=== PATIENT | female | born 1975 | race Caucasian/White ===

== ENCOUNTER 2017-12-16 08:04 | Observation (INO) | payer BC ==
[2017-12-16] VITALS (8 sets, daily range): BP systolic 95–126; BP diastolic 54–73; PULSE 64–89; RESP 15–20; TEMP 97.5–98.1; O2SAT 95–99
[~2017-12-16] VITALS: Ht 165.1 cm; Wt 70.0 kg
[~2017-12-16 08:04] MED LIST: Z.0.NO CURRENT MEDS
[2017-12-16] MEDS ORDERED: diphenhydrAMINE HCL 50 MG/ML VIAL IV PUSH ONE (08:30)
[2017-12-16] MEDS ORDERED: methylPREDNISolone SOD SUCC 125 MG/2 ML VIAL IV PUSH ONE (08:30)
[2017-12-16] MEDS ORDERED: SODIUM CHLORIDE 0.9% FLUSH 10 ML FLUSH IVF PRN (08:30)
[2017-12-16] MEDS ORDERED: FAMOTIDINE 20 MG TAB PO ONE (08:30)
[2017-12-16] MEDS ORDERED: CITA40TA4 PO (08:49)
--- NOTE | 2017-12-16 09:00 | RADRPT ---
EXAM DATE/TIME: 12/16/2017 08:33 [place] COMPARISON: No previous studies available for comparison. INDICATIONS : Rash x3 days with fever. MEDICAL HISTORY : None. SURGICAL HISTORY : None. ENCOUNTER: Initial ACUITY: 3 days PAIN SCORE: 1/10 LOCATION: Bilateral chest FINDINGS: A single view of the chest demonstrates the lungs to be symmetrically aerated without evidence of mas s, infiltrate or effusion. The cardiomediastinal contours are unremarkable. Osseous structures are intact. CONCLUSION: No acute disease. Sheldon Zuniga Jr., MD on December 16, 2017 at 8:57 Board Certified Radiologist. This report was verified electronically.
[2017-12-16 09:08] LABS: AUTOMATED NEUTROPHIL # 6.6 TH/MM3 (1.8-7.7); BASOPHIL % 0.3 % (0.0-2.0); EOSINOPHIL # 0.1 TH/MM3 (0-0.4); EOSINOPHIL % 0.6 % (0.0-4.0); HEMATOCRIT 40.5 % (35.0-46.0); LYMPH % 16.8 % (9.0-44.0); LYMPHOCYTE # 1.4 TH/MM3 (1.0-4.8); MEAN CELL VOLUME 98.9 FL (80.0-100.0); MEAN CORPUSCULAR HEMOGLOBIN 34.1 PG (27.0-34.0); MEAN CORPUSCULAR HGB CONC 34.5 % (32.0-36.0); MEAN PLATELET VOLUME 6.8 FL (7.0-11.0); MONO % 4.3 % (0.0-8.0); MONOCYTE # 0.4 TH/MM3 (0-0.9); PLATELET COUNT 255 TH/MM3 (150-450); RED CELL DISTRIBUTION WIDTH 13.5 % (11.6-17.2); WHITE BLOOD COUNT 8.5 TH/MM3 (4.0-11.0)
[2017-12-16 09:18] LABS: PROTHROMBIN TIME - PATIENT 10.1 SEC (9.8-11.6)
[2017-12-16 09:26] LABS: ALBUMIN 3.5 GM/DL (3.4-5.0); ALT (GPT) 14 U/L (10-53); AST (GOT) 14 U/L (15-37); BICARBONATE 27.2 MEQ/L (21.0-32.0); BLOOD UREA NITROGEN 15 MG/DL (7-18); CALCIUM 9.1 MG/DL (8.5-10.1); CHLORIDE 104 MEQ/L (98-107); CREATININE 0.95 MG/DL (0.50-1.00); GLOMERULAR FILTRATION RATE 64 ML/MIN (>89); GLUCOSE,RANDOM 88 MG/DL (74-106); SODIUM (NA) 137 MEQ/L (136-145)
[2017-12-16 09:31] LABS: ALKALINE PHOSPHATASE 56 U/L (45-117); TOTAL BILIRUBIN ADULT 0.5 MG/DL (0.2-1.0); TOTAL PROTEIN 6.4 GM/DL (6.4-8.2); TROPONIN I 0.02 NG/ML (0.02-0.05)
[2017-12-16] MEDS ORDERED: hydrOXYzine HCL 25 MG TAB PO ONE (11:15)
[2017-12-16] MEDS ORDERED: ASPIRIN 81 MG CHEW TAB CHEW ONE (11:15)
--- NOTE | 2017-12-16 11:19 | PD ---
HPI Chief Complaint: Cardiac Complaint Time Seen by Provider: 08:18 Travel History International Travel<30 days: No Contact w/Intl Traveler<30days: No Traveled to known affect area: No History of Present Illness HPI Patient is a 42-year-old female who comes in complaining of chest pain as well as a skin rash. She says she has had hives for the past few days. She went to [facility] and was prescribed steroids and Bactrim. She has been taking this, but that she did not take it today. She says that it does not seem to be improving. She said last night she developed substernal chest pain. She says she has never had this pain before. She describes it as a tightness in her chest. She denies nausea vomiting or shortness of breath. She is a heavy smoker. Nothing seems to be making her symptoms better. PFSH Past Medical History Depression: Yes Immunizations Current: Yes Tetanus Vaccination: Unknown Influenza Vaccination: No ?: Not LMP: 10/27/2017 Tubal Ligation: Yes Past Surgical History Gynecologic Surgery: Yes (tubal ligation ) Social History Alcohol Use: No Tobacco Use: Yes (1 PPD) Substance Use: Yes (SMOKE MARIJUANA ) Allergies-Medications (Allergen,Severity, Reaction): Coded Allergies: No Known Allergies (Verified Adverse Reaction, Unknown, 12/16/17) Reported Meds & Prescriptions Reported Meds & Active Scripts Active Reported Citalopram (Citalopram Hydrobromide) 40 Mg Tab 40 Mg PO DAILY Review of Systems Except as stated in HPI: all other systems reviewed are Neg General / Constitutional: No: Fever, Chills HENT: No: Headaches, Lightheadedness Cardiovascular: Positive: Chest Pain or Discomfort Respiratory: No: Cough, Shortness of Breath Gastrointestinal: No: Nausea, Vomiting Musculoskeletal: No: Myalgias, Edema Skin: Positive Rash, Positive Itching Neurologic: No: Weakness, Dizziness Physical Exam Narrative GENERAL: Awake and alert, in no acute distress. SKIN: Focused skin assessment warm/dry. Urticaria to the thighs as well as both arms. HEAD: Atraumatic. Normocephalic. EYES: Pupils equal and round. No scleral icterus. ENT: No swelling of the tongue or pharynx. Mucous membranes pink and moist. NECK: Trachea midline. No JVD. CARDIOVASCULAR: Regular rate and rhythm. No murmur appreciated. RESPIRATORY: No accessory muscle use. Clear to auscultation. Breath sounds equal bilaterally. GASTROINTESTINAL: Abdomen soft, non-tender, nondistended. MUSCULOSKELETAL: No obvious deformities. No clubbing. No cyanosis. No edema. NEUROLOGICAL: Awake and alert. No obvious cranial nerve deficits. Motor grossly within normal limits. Normal speech. PSYCHIATRIC: Appropriate mood and affect; insight and judgment normal. Data Data Last Documented VS Vital Signs Date Time Temp Pulse Resp B/P (MAP) Pulse Ox O2 Delivery O2 Flow Rate FiO2 12/16/17 09:38 83 19 102/55 (71) 99 Nasal Cannula 2.00 Orders Orders Electrocardiogram (12/16/17 08:25) Complete Blood Count With Diff (12/16/17 08:25) Comprehensive Metabolic Panel (12/16/17 08:25) Prothrombin Time / Inr (Pt) (12/16/17 08:25) Act Partial Throm Time (Ptt) (12/16/17 08:25) Troponin I (12/16/17 08:25) Chest, Single Ap (12/16/17 08:25) Ecg Monitoring (12/16/17 08:25) Bilateral Bp Monitoring (12/16/17 08:25) Iv Access Insert/Monitor (12/16/17 08:25) Oximetry (12/16/17 08:25) Oxygen Administration (12/16/17 08:25) Sodium Chloride 0.9% Flush (Ns Flush) (12/16/17 08:30) Diphenhydramine Inj (Benadryl Inj) (12/16/17 08:30) Methylprednisolone So Succ Inj (Solumedr (12/16/17 08:30) Famotidine (Pepcid) (12/16/17 08:30) Hydroxyzine Hcl (Atarax) (12/16/17 11:15) Aspirin Chew (Aspirin Chew) (12/16/17 11:15) Admit Order (Ed Use Only) (12/16/17 ) Labs Laboratory Tests Test 12/16/17 08:55 White Blood Count 8.5 TH/MM3 Red Blood Count 4.10 MIL/MM3 Hemoglobin 14.0 GM/DL Hematocrit 40.5 % Mean Corpuscular Volume 98.9 FL Mean Corpuscular Hemoglobin 34.1 PG Mean Corpuscular Hemoglobin Concent 34.5 % Red Cell Distribution Width 13.5 % Platelet Count 255 TH/MM3 Mean Platelet Volume 6.8 FL Neutrophils (%) (Auto) 78.0 % Lymphocytes (%) (Auto) 16.8 % Monocytes (%) (Auto) 4.3 % Eosinophils (%) (Auto) 0.6 % Basophils (%) (Auto) 0.3 % Neutrophils # (Auto) 6.6 TH/MM3 Lymphocytes # (Auto) 1.4 TH/MM3 Monocytes # (Auto) 0.4 TH/MM3 Eosinophils # (Auto) 0.1 TH/MM3 Basophils # (Auto) 0.0 TH/MM3 CBC Comment DIFF FINAL Differential Comment Prothrombin Time 10.1 SEC Prothromb Time International Ratio 1.0 RATIO Activated Partial Thromboplast Time 22.8 SEC Blood Urea Nitrogen 15 MG/DL Creatinine 0.95 MG/DL Random Glucose 88 MG/DL Total Protein 6.4 GM/DL Albumin 3.5 GM/DL Calcium Level 9.1 MG/DL Alkaline Phosphatase 56 U/L Aspartate Amino Transf (AST/SGOT) 14 U/L Alanine Aminotransferase (ALT/SGPT) 14 U/L Total Bilirubin 0.5 MG/DL Sodium Level 137 MEQ/L Potassium Level 4.2 MEQ/L Chloride Level 104 MEQ/L Carbon Dioxide Level 27.2 MEQ/L Anion Gap 6 MEQ/L Estimat Glomerular Filtration Rate 64 ML/MIN Troponin I 0.02 NG/ML MDM Medical Decision Making Medical Screen Exam Complete: Yes Emergency Medical Condition: Yes Medical Record Reviewed: Yes Interpretation(s) ECG shows normal sinus rhythm at 87, no ST elevation or depression Differential Diagnosis ACS versus an STEMI versus STEMI versus allergic reaction Narrative Course Patient is a 42-year-old female comes in complaining of hives as well as chest pain. Exam shows urticaria on her extremities. There is no airway compromise. She was given steroids, famotidine, Benadryl. There does seem to be some improvement of the urticaria. She is advised to change to Dove soap and a hypoallergenic detergent. Her chest pain is concerning, as it is substernal and started last night. ECG shows no signs of ischemia. Troponin is negative. Patient given an aspirin will be placed in the chest pain center for management of this issue. Diagnosis Primary Impression: Chest pain Qualified Codes: R07.9 - Chest pain, unspecified Additional Impression: Urticaria Admitting Information Admitting Physician Requests: Observation Caitlin Joel MD Dec 16, 2017 11:19
[2017-12-16] MEDS ORDERED: ONDANSETRON HCL 4 MG/2 ML VIAL IV PUSH PRN (12:15)
[2017-12-16] MEDS ORDERED: NITROGLYCERIN 0.4 MG SL 25 TABS/BTL SL PRN (12:15)
--- NOTE | 2017-12-16 12:17 | HHI.HP ---
HPI Primary Care Physician No Primary Care Physician Chief Complaint Chest pain History of Present Illness 42-year-old female with no significant past medical history and a current smoker presents emergency room for further evaluation of chest pain any skin rash. Onset chest pain for a.m. Pain woke her from sleep. Location substernal with radiation left inframammary area. Characterized as sharp pain. Duration 20 minutes of severe pain, followed by continuos mild discomfort. No associated symptoms of nausea, vomiting, or diaphoresis. Endorses slight dyspnea during severe pain. No known precipitating or relieving factors. Continues to have tenderness of substernal area, made worse with palpation. No particular movement or position makes pain better or worse. In regards to skin rash, onset 3 days ago. Location generalized bilateral legs, bilateral arms, back, and trunk areas. Characterized as burning, itching, sore to the touch, raised areas. Seen and evaluated by [facility] 3 days when rash first occurred. Given Bactrim, Prednisone, and Benadryl without any relief. Rash not getting worse, as some areas have resolved, but developing new areas on neck, upper back, and left side of face/left orbital area. No triggers identified, no new soaps, or medications. Denies similar symptoms in the past. Review of Systems General: No fatigue,weakness, fever, chills, recent illness, or change in appetite. As stated above, otherwise as been in her general state of health. HEENT: No HALE, no vision changes, no nasal congestion or drainage, no dysphasia CV: Continues to have "mild" chest pain as stated above. No palpitations or dizziness. RESP: No SOB, cough, wheeze, or recent URI. Current smoker. GI: No nausea, vomiting, bowel changes, diarrhea, constipation, pain, distention , melena, or blood in the stool. : No dysuria, urgency, frequency, recent UTIs, or prone to frequent UTIs. EXT: No lower leg edema, no paraesthesias MS: No discomfort, change in ROM, or recent injury. NEURO: No change in memory, difficulty with balance, LOC, motor/sensory deficits PSYCH: No anxiety. History of depression well controlled with current medication regimen. No recent or increased situational stress. SKIN: x3 days raised, pruritic, painful, reddened rash bilateral legs, bilateral arms, back, and truck. Reports areas move location. Rash resulted in left hand edema x1 day which as since resolved. Rash moved to left orbital area causing edema without pain in eye. Past Family Social History Allergies: Coded Allergies: No Known Allergies (Verified Allergy, Unknown, 12/16/17) Past Medical History Depression Past Surgical History Tubal ligation Reported Medications Reported Meds & Active Scripts Active Reported Citalopram (Citalopram Hydrobromide) 40 Mg Tab 40 Mg PO DAILY Active Ordered Medications Current Medications Medications (Trade) Dose Ordered Sig/Teresa Route Start Time Stop Time Status Last Admin (NS Flush) 2 ml UNSCH PRN IVF 12/16/17 08:30 12/16/17 09:09 (NS Flush) 2 ml BID IV FLUSH 12/16/17 21:00 UNV (Tylenol) 500 mg Q4H PRN PO 12/16/17 12:15 UNV (Zofran Inj) 4 mg Q6H PRN IV PUSH 12/16/17 12:15 UNV (Nitrostat Sl) 0.4 mg Q5M PRN SL 12/16/17 12:15 UNV (Aspirin) 325 mg DAILY PO 12/17/17 09:00 UNV Family History Noncontributory for early onset cardiovascular disease. Social History No known hypertension, hyperlipidemia, or diabetes. Current smoker 3/4 pack daily. No alcohol or illegal drug use. . 5 children ages 27, 24,21,18, and 5. Past cardiac testing None Physical Exam Vital Signs Vital Signs Date Time Temp Pulse Resp B/P (MAP) Pulse Ox O2 Delivery O2 Flow Rate FiO2 12/16/17 09:38 83 19 102/55 (71) 99 Nasal Cannula 2.00 12/16/17 08:51 96 Nasal Cannula 2.00 12/16/17 08:49 99 Room Air 12/16/17 08:45 86 15 99 Room Air 12/16/17 08:17 89 18 112/73 (86) 96 Room Air Physical Exam GENERAL: Alert WN, WD, NAD, pleasant, female HEAD: NC, AT EYES: Sclera clear, conjunctiva without injection, pupils equal and round ENT: Mucous membranes pink and moist, no nasal discharge or bleeding NECK: Supple, no masses, trachea midline CV: RRR, without murmur, rub, gallop, no JVD, S1-S2 no S3-S4. Chest wall pain reproduced with palpation. RESP: Clear lungs throughout bilateral, no crackles, wheeze, rhonchi, symmetrical chest rise, nonlabored, able to speak in full sentences ABD: Soft, NT, ND, no masses, positive bowel tones EXT: Pulses +24, no dependent edema, varicosities lower extremities MS: Normal tone 4 extremities, nontender, no obvious deformities, full range of motion NEURO: CN II through CN XII grossly intact, motor strength 5/5, gait WNL PSYCH: A+O 3, pleasant affect, appropriate speech, mood, insight and judgment SKIN: Diffuse raised, warm, blanchable, well circumscribed erythema and edema bilateral thighs, arms, posterior neck, left optical area, and trunk. Normal turgor,multiple tattoos Laboratory Laboratory Tests Test 12/16/17 08:55 White Blood Count 8.5 Red Blood Count 4.10 Hemoglobin 14.0 Hematocrit 40.5 Mean Corpuscular Volume 98.9 Mean Corpuscular Hemoglobin 34.1 Mean Corpuscular Hemoglobin Concent 34.5 Red Cell Distribution Width 13.5 Platelet Count 255 Mean Platelet Volume 6.8 Neutrophils (%) (Auto) 78.0 Lymphocytes (%) (Auto) 16.8 Monocytes (%) (Auto) 4.3 Eosinophils (%) (Auto) 0.6 Basophils (%) (Auto) 0.3 Neutrophils # (Auto) 6.6 Lymphocytes # (Auto) 1.4 Monocytes # (Auto) 0.4 Eosinophils # (Auto) 0.1 Basophils # (Auto) 0.0 CBC Comment DIFF FINAL Differential Comment Prothrombin Time 10.1 Prothromb Time International Ratio 1.0 Activated Partial Thromboplast Time 22.8 Blood Urea Nitrogen 15 Creatinine 0.95 Random Glucose 88 Total Protein 6.4 Albumin 3.5 Calcium Level 9.1 Alkaline Phosphatase 56 Aspartate Amino Transf (AST/SGOT) 14 Alanine Aminotransferase (ALT/SGPT) 14 Total Bilirubin 0.5 Sodium Level 137 Potassium Level 4.2 Chloride Level 104 Carbon Dioxide Level 27.2 Anion Gap 6 Estimat Glomerular Filtration Rate 64 Troponin I 0.02 Result Diagram: 12/16/1755 12/16/1755 Imaging Last 48 hours Impressions Chest X-Ray 12/16/17 0832 Signed Impressions: Service Date/Time: Saturday, December 16, 2017 08:33 - CONCLUSION: No acute disease. Sheldon Zuniga Jr., MD Course EKG NSR, normal axis, no st t segment changes Caprini VTE Risk Assessment Caprini VTE Risk Assessment: No/Low Risk (score <= 1) Caprini Risk Assessment Model Point Value = 1 Point Value = 2 Point Value = 3 Point Value = 5 Age 41-60 Minor surgery BMI > 25 kg/m2 Swollen legs Varicose veins or History of unexplained or recurrent spontaneous Oral contraceptives or hormone replacement Sepsis (< 1 month) Serious lung disease, including pneumonia (< 1 month) Abnormal pulmonary function Acute myocardial infarction Congestive heart failure (< 1 month) History of inflammatory bowel disease Medical patient at bed rest Age 61-74 Arthroscopic surgery Major open surgery (> 45 min) Laparoscopic surgery (> 45 min) Malignancy Confined to bed (> 72 hours) Immobilizing plaster cast Central venous access Age >= 75 History of VTE Family history of VTE Factor V Leiden Prothrombin [id number] Lupus anticoagulant Anticardiolipin antibodies Elevated serum homocysteine Heparin-induced thrombocytopenia Other congenital or acquired thrombophilia Stroke (< 1 month) Elective arthroplasty Hip, pelvis, or leg fracture Acute spinal cord injury (< 1 month) Prophylaxis Regimen Total Risk Factor Score Risk Level Prophylaxis Regimen 0-1 Low Early ambulation 2 Moderate Order ONE of the following: *Sequential Compression Device (SCD) *Heparin 5000 units SQ BID 3-4 Higher Order ONE of the following medications: *Heparin 5000 units SQ TID *Enoxaparin/Lovenox 40 mg SQ daily (WT < 150 kg, CrCl > 30 mL/min) *Enoxaparin/Lovenox 30 mg SQ daily (WT < 150 kg, CrCl > 10-29 mL/min) *Enoxaparin/Lovenox 30 mg SQ BID (WT < 150 kg, CrCl > 30 mL/min) AND/OR *Sequential Compression Device (SCD) 5 or more Highest Order ONE of the following medications: *Heparin 5000 units SQ TID (Preferred with Epidurals) *Enoxaparin/Lovenox 40 mg SQ daily (WT < 150 kg, CrCl > 30 mL/min) *Enoxaparin/Lovenox 30 mg SQ daily (WT < 150 kg, CrCl > 10-29 mL/min) *Enoxaparin/Lovenox 30 mg SQ BID (WT < 150 kg, CrCl > 30 mL/min) AND *Sequential Compression Device (SCD) Assessment and Plan Assessment and Plan #1 Chest pain-admitted to chest pain center. Begin cardiac protocol including 3 sets EKG, cardiac enzymes, and monitor on telemetry. Will be seen and evaluated by Dr. Larry Ross. Reassurance provided chest discomfort atypical for cardiac pain and suspect costochondritis verses gastritis due to recent oral steroid use. Further disposition to follow after evaluation by consulting application engineer. #2 Tobacco use-strongly encourage and stressed the importance of tobacco cessation. Instructed to quit smoking. #3 Possible gastritis-GI cocktail, consider adding PPI. #4 Urticaria-Hydroxyzines, diphenhydramine, and Solu-Medrol given in ER. [address] Larry Ross. Rash possibility vasculitis, not urticaria as originally suspected. Obtain DENVER, sed rate, and urinalysis and consult hospitalist for further evaluation. No further cardiac testing warranted at present. 1420 Spoke with patient RN regarding plan of care and consult to hospitalist. Viktoria Hinton Dec 16, 2017 12:17
[2017-12-16] MEDS ORDERED: ALUMINUM/MAGNESIUM/SIMETH 30 ML CUP PO ONE (12:45)
[2017-12-16] MEDS ORDERED: LIDOCAINE VISCOUS 2% SOLN 15 ML UDC SWISH-SWAL ONE (12:45)
[2017-12-16 12:46] LABS: TROPONIN I LESS THAN 0.02 NG/ML (0.02-0.05)
[2017-12-16 16:25] LABS: TROPONIN I LESS THAN 0.02 NG/ML (0.02-0.05)
[2017-12-16] MEDS: ACETAMINOPHEN 500 MG CPLT PO PRN (19:57)
[2017-12-16] MEDS: hydrOXYzine HCL 25 MG TAB PO PRN (19:57)
[2017-12-16 20:23] LABS: AMORPHOUS SEDIMENT, URINE RARE; BACTERIA, URINE RARE /hpf; BILIRUBIN, URINE NEG (NEG); BLOOD, URINE NEG (NEG); GLUCOSE,URINE NEG (NEG); KETONE, URINE NEG (NEG); MUCUS URINE FEW /lpf (OCC); NITRITE,URINE NEG (NEG); PH, URINE 7.5 (5.0-8.5); URINE COLOR YELLOW (YELLW/STRAW); URINE LEUKOCYTE ESTERASE NEG (NEG)
[2017-12-16] MEDS: SODIUM CHLORIDE 0.9% FLUSH 10 ML FLUSH IV FLUSH SCH (21:00)
[2017-12-17] MEDS: hydrOXYzine HCL 25 MG TAB PO PRN ×2 (03:29→10:12)
[2017-12-17] MEDS: ACETAMINOPHEN 500 MG CPLT PO PRN (03:30)
[2017-12-17 04:03] VITALS: BP 108/63; PULSE 68; RESP 18; TEMP 98.7; O2SAT 97
--- NOTE | 2017-12-17 07:21 | EKG ---
Date Performed: 12/16/2017 Time Performed: 08:30:07 PTAGE: 42 years EKG: Sinus rhythm WITH SHORT HI INTERVAL POSSIBLE RIGHT VENTRICULAR CONDUCTION DELAY BORDERLINE ECG NO PREVIOUS TRACING DOCTOR: Sarah Napoles Interpretating Date/Time 12/17/2017 07:20:18
--- NOTE | 2017-12-17 07:21 | EKG ---
Date Performed: 12/16/2017 Time Performed: 12:11:59 PTAGE: 42 years EKG: Sinus rhythm POSSIBLE RIGHT VENTRICULAR CONDUCTION DELAY BORDERLINE ECG Since PREVIOUS TRACING , no significant change noted PREVIOUS TRACIN12/16/2017 08.30 DOCTOR: Sarah Napoles Interpretating Date/Time 12/17/2017 07:20:30
[2017-12-17 08:00] VITALS: BP 109/67; PULSE 62; RESP 20; TEMP 96.8; O2SAT 96
[2017-12-17] MEDS ORDERED: LIDOCAINE VISCOUS 2% SOLN 15 ML UDC SWISH-SWAL PRN (09:00)
[2017-12-17] MEDS ORDERED: ALUMINUM/MAGNESIUM/SIMETH 30 ML CUP PO PRN (09:00)
[2017-12-17] MEDS ORDERED: ASPIRIN 81 MG CHEW TAB PO SCH (09:00)
[2017-12-17] MEDS ORDERED: ASPIRIN 325 MG TAB PO SCH (09:00)
[2017-12-17 10:00] VITALS: PULSE 59
[2017-12-17] MEDS: SODIUM CHLORIDE 0.9% FLUSH 10 ML FLUSH IV FLUSH SCH (10:12)
[2017-12-17 12:00] VITALS: BP 101/57; PULSE 73; RESP 20; TEMP 95.6; O2SAT 97
[2017-12-17] MEDS ORDERED: PRED20 PO (12:27)
[2017-12-17] MEDS ORDERED: PROT40TA PO (12:27)
[2017-12-17] MEDS ORDERED: HYDR-3133 PO (12:27)
--- NOTE | 2017-12-17 12:28 | HHI.PR ---
Subjective Remarks Follow up for chest pain, urticaria. Patient is currently doing well. However, she reports resolution of some urticaria and onset of some new urticaria. Facial urticaria is resolved. She reports resolution of chest discomfort with GI cocktail. No fever, chills. Objective Vitals Vital Signs Date Time Temp Pulse Resp B/P (MAP) Pulse Ox O2 Delivery O2 Flow Rate FiO2 12/17/17 08:00 96.8 62 20 109/67 (81) 96 12/17/17 04:14 18 12/17/17 04:03 98.7 68 18 108/63 (78) 97 12/17/17 03:33 18 12/16/17 23:10 98.0 66 18 126/68 (87) 95 12/16/17 20:56 21 12/16/17 20:39 98.1 64 18 110/57 (74) 96 12/16/17 16:00 97.5 66 20 95/54 (68) 96 12/16/17 15:55 69 12/16/17 12:51 12/16/17 12:30 76 19 102/63 (76) 96 Room Air I/O 12/16/17 12/16/17 12/16/17 12/17/17 12/17/17 12/17/17 07:00 15:00 23:00 07:00 15:00 23:00 Intake Total 250 ml 200 ml Balance 250 ml 200 ml Intake Oral 250 ml 200 ml Result Diagram: 12/16/17 0855 12/16/17 0855 Imaging Last Impressions Chest X-Ray 12/16/17 0825 Signed Impressions: Service Date/Time: Saturday, December 16, 2017 08:33 - CONCLUSION: No acute disease. Sheldon Zuniga Jr., MD Objective Remarks GENERAL: Alert, Oriented x 3, NAD. SKIN: Warm and dry. Diffuse patchy urticarial lesions noted. HEAD: Normocephalic. EYES: No scleral icterus. No injection or drainage. NECK: Supple, trachea midline. No JVD or lymphadenopathy. CARDIOVASCULAR: Regular rate and rhythm without murmurs, gallops, or rubs. RESPIRATORY: Breath sounds equal bilaterally. No accessory muscle use. GASTROINTESTINAL: Abdomen soft, non-tender, nondistended. MUSCULOSKELETAL: No cyanosis, or edema. BACK: Nontender without obvious deformity. No CVA tenderness. Procedures None. A/P Problem List: (1) Urticaria of unknown origin ICD Code: L50.9 - Urticaria, unspecified (2) Chest pain ICD Code: R07.9 - Chest pain, unspecified Assessment and Plan Ms. Lomas, 42 was admitted to the hospital due to chest pain. Troponins were negative. She started having diffuse urticaria prior to this admission. She reports burning, itchy sensation. No airway compromise. Facial urticaria resolved. - Chest pain - Possibly due to prednisone use, gastritis. - Troponins X 3 negative. - Will discharge patient on Protonix. - Diffuse urticaria - Patient is hemodynamically stable. No airway compromise - Advised patient to see a Quality Control Tester as soon as possible. She called a store consultant that belongs to her insurance network. - Patient will follow up with Rheumatology for further work up. - Differential diagnosis including hypersensitivity reaction, Urticarial vasculitis, atypical presentation of SLE - Work up can be done in the outpatient setting. - ESR was 4. DENVER was ordered - pending. - Tobacco abuse - patient is advised to quit smoking. Full code. Discharge patient to home Condition on discharge: Improved Regular Diet as tolerated Ad Cecilia activity Rx written: - Hydroxyzine 25mg Q6hrs PRN - Protonix 40mg Qday - Prednisone 20mg Qday X 7 days. Follow-up with primary care physician one week. Rheumatology within 7-10 days. Willie Cassidy DO Dec 17, 2017 12:28
== END 2017-12-17 16:15 | disposition home or self-care (01) ==
LOC: NEPC 08:04 → NEDA 11:14 → NEPGCP 12:49
PROVIDERS: ADMIT Hospitalist; ATTEND Hospitalist
DX: R07.9 Chest pain, unspecified (principal); L50.9 Urticaria, unspecified; F17.210 Nicotine dependence, cigarettes, uncomplicated; F32.9 Major depressive disorder, single episode, unspecified; F12.90 Cannabis use, unspecified, uncomplicated; R06.00 Dyspnea, unspecified; R94.31 Abnormal electrocardiogram [ECG] [EKG]
CPT/HCPCS: 71045; 80053; 81001; 82550; 84484; 85025; 85610; 85652; 85730; 86038; 93005; 96374; 96375; 99285; G0378; J1200; J2930

== ENCOUNTER 2018-02-27 13:52 | Inpatient (IN) | payer BC ==
[~2018-02-27] VITALS: Ht 165.1 cm; Wt 77.7 kg
[2018-02-27] VITALS (7 sets, daily range): BP systolic 78–127; BP diastolic 46–69; PULSE 43–53; RESP 14–20; TEMP 98.3; O2SAT 97–100
[~2018-02-27 13:52] MED LIST changes: +CITA40TA4 PO; +HYDR-3133 PO; +PRED20 PO; +PROT40TA PO; -Z.0.NO CURRENT MEDS
[2018-02-27 17:25] LABS: AUTOMATED NEUTROPHIL # 4.7 TH/MM3 (1.8-7.7); BASOPHIL # 0.1 TH/MM3 (0-0.2); EOSINOPHIL # 0.2 TH/MM3 (0-0.4); EOSINOPHIL % 3.1 % (0.0-4.0); HEMATOCRIT 44.7 % (35.0-46.0); HEMOGLOBIN 15.5 GM/DL (11.6-15.3); LYMPH % 23.5 % (9.0-44.0); LYMPHOCYTE # 1.7 TH/MM3 (1.0-4.8); MEAN CELL VOLUME 98.5 FL (80.0-100.0); MEAN CORPUSCULAR HEMOGLOBIN 34.1 PG (27.0-34.0); MEAN CORPUSCULAR HGB CONC 34.6 % (32.0-36.0); MEAN PLATELET VOLUME 7.4 FL (7.0-11.0); MONO % 8.5 % (0.0-8.0); MONOCYTE # 0.6 TH/MM3 (0-0.9); NEUT % 63.9 % (16.0-70.0); PLATELET COUNT 275 TH/MM3 (150-450); RED BLOOD COUNT 4.54 MIL/MM3 (4.00-5.30); RED CELL DISTRIBUTION WIDTH 13.3 % (11.6-17.2); WHITE BLOOD COUNT 7.4 TH/MM3 (4.0-11.0)
[2018-02-27] MEDS ORDERED: SODIUM CHLOR 0.9% 1000 ML INJ 1,000 ML IV ONE ×4 (19:00→21:30)
--- NOTE | 2018-02-27 19:11 | PD ---
HPI Chief Complaint: OD/ Ingestion Time Seen by Provider: 18:43 Travel History International Travel<30 days: No Contact w/Intl Traveler<30days: No Traveled to known affect area: No History of Present Illness HPI The patient was seen and examined in the presence of the nurse. This patient has been having some severe depression and suicidal ideations. Yesterday she took an intentional overdose of clonidine at noon. She says that she took 90 tablets of 0.1 mg strength. She arrives critically ill with a blood pressure of 74 systolic and is feeling drowsy and lethargic. She denies alcohol or illicit drug use. Symptoms are severe. No alleviating factors. No exacerbating factors. Duration is according to the patient 31 hours. PFSH Past Medical History Depression: Yes Diabetes: No Psychiatric: Yes Immunizations Current: Yes Tetanus Vaccination: > 5 Years Influenza Vaccination: No ?: Not LMP: 2017 Tubal Ligation: Yes Past Surgical History Gynecologic Surgery: Yes (tubal ligation ) Other Surgery: Yes (TUBAL LIGATION) Social History Alcohol Use: No Tobacco Use: Yes (1 PPD) Substance Use: Yes (SMOKE MARIJUANA ) Allergies-Medications (Allergen,Severity, Reaction): Coded Allergies: No Known Allergies (Verified Allergy, Unknown, 02/27/18) Reported Meds & Prescriptions Reported Meds & Active Scripts Active Protonix (Pantoprazole Sodium) 40 Mg Tab 40 Mg PO DAILY Prednisone 20 Mg Tab 20 Mg PO DAILY Hydroxyzine HCl 25 Mg Tab 25 Mg PO Q6H PRN Reported Citalopram (Citalopram Hydrobromide) 40 Mg Tab 40 Mg PO DAILY Review of Systems General / Constitutional: No: Fever Eyes: No: Visual changes HENT: No: Headaches Cardiovascular: No: Chest Pain or Discomfort Respiratory: No: Shortness of Breath Gastrointestinal: No: Abdominal Pain Genitourinary: No: Dysuria Musculoskeletal: No: Pain Skin: No Rash Neurologic: Positive: Change in Mentation, No: Weakness Psychiatric: Positive: Depression, Suicidal Ideations Endocrine: No: Polydipsia Hematologic/Lymphatic: No: Easy Bruising Physical Exam Narrative GENERAL: Well-nourished, well-developed patient who is drowsy. SKIN: Focused skin assessment reveals no rash and nodules. Skin is Warm and dry. HEAD: Atraumatic. Normocephalic. EYES: Pupils equal and round. No scleral icterus. No injection or drainage. ENT: No nasal bleeding or discharge. Mucous membranes pink and moist. NECK: Trachea midline. No JVD. CARDIOVASCULAR: Regular rate and rhythm. No murmur appreciated. Bradycardic at 50 RESPIRATORY: No accessory muscle use. Clear to auscultation. Breath sounds equal bilaterally. GASTROINTESTINAL: Abdomen soft, non-tender, nondistended. Hepatic and splenic margins not palpable. MUSCULOSKELETAL: No obvious deformities. No clubbing. No cyanosis. No edema. NEUROLOGICAL: Awake but drowsy. No obvious cranial nerve deficits. Motor grossly within normal limits. Normal speech. PSYCHIATRIC: Depressed mood and flat affect; insight and judgment poor. Data Data Last Documented VS Vital Signs Date Time Temp Pulse Resp B/P (MAP) Pulse Ox O2 Delivery O2 Flow Rate FiO2 02/27/18 21:54 43 20 127/61 (83) 99 Nasal Cannula 2.00 02/27/18 14:39 98.3 Orders Orders Electrocardiogram (02/27/18 14:40) Complete Blood Count With Diff (02/27/18 14:40) Comprehensive Metabolic Panel (02/27/18 14:40) Urinalysis - C+S If Indicated (02/27/18 14:40) Ed Urine Pregnancytest Poc (02/27/18 14:40) Psych Screen (02/27/18 14:40) Drug Screen, Random Urine (02/27/18 14:40) Alcohol (Ethanol) (02/27/18 14:40) Salicylates (Aspirin) (02/27/18 14:40) Tylenol (Acetaminophen) (02/27/18 14:40) Queen Producer / Telemetry LUDMILA.Q8H (02/27/18 18:53) Sodium Chlor 0.9% 1000 Ml Inj (Ns 1000 M (02/27/18 19:00) Sodium Chlor 0.9% 1000 Ml Inj (Ns 1000 M (02/27/18 19:00) Call Poison Control (02/27/18 18:54) Sodium Chlor 0.9% 1000 Ml Inj (Ns 1000 M (02/27/18 21:30) Sodium Chlor 0.9% 1000 Ml Inj (Ns 1000 M (02/27/18 21:30) Urine Culture (02/27/18 UNK) Labs Laboratory Tests Test 02/27/18 00:00 02/27/18 16:52 Urine Color YELLOW Urine Turbidity HAZY Urine pH 5.5 Urine Specific [place] 1.015 Urine Protein 30 mg/dL Urine Glucose (UA) NEG mg/dL Urine Ketones NEG mg/dL Urine Occult Blood SMALL Urine Nitrite NEG Urine Bilirubin NEG Urine Urobilinogen LESS THAN 2.0 MG/DL Urine Leukocyte Esterase TRACE Urine RBC 3 /hpf Urine WBC 14 /hpf Urine Squamous Epithelial Cells 1 /hpf Urine Amorphous Sediment RARE Urine Bacteria OCC /hpf Urine Hyaline Casts 10 /lpf Urine Mucus FEW /lpf Microscopic Urinalysis Comment CULTURE INDICATED Urine Opiates Screen NEG Urine Barbiturates Screen NEG Urine Amphetamines Screen NEG Urine Benzodiazepines Screen NEG Urine Cocaine Screen NEG Urine Cannabinoids Screen POS White Blood Count 7.4 TH/MM3 Red Blood Count 4.54 MIL/MM3 Hemoglobin 15.5 GM/DL Hematocrit 44.7 % Mean Corpuscular Volume 98.5 FL Mean Corpuscular Hemoglobin 34.1 PG Mean Corpuscular Hemoglobin Concent 34.6 % Red Cell Distribution Width 13.3 % Platelet Count 275 TH/MM3 Mean Platelet Volume 7.4 FL Neutrophils (%) (Auto) 63.9 % Lymphocytes (%) (Auto) 23.5 % Monocytes (%) (Auto) 8.5 % Eosinophils (%) (Auto) 3.1 % Basophils (%) (Auto) 1.0 % Neutrophils # (Auto) 4.7 TH/MM3 Lymphocytes # (Auto) 1.7 TH/MM3 Monocytes # (Auto) 0.6 TH/MM3 Eosinophils # (Auto) 0.2 TH/MM3 Basophils # (Auto) 0.1 TH/MM3 CBC Comment DIFF FINAL Differential Comment Blood Urea Nitrogen 14 MG/DL Creatinine 1.47 MG/DL Random Glucose 97 MG/DL Total Protein 7.4 GM/DL Albumin 4.0 GM/DL Calcium Level 9.5 MG/DL Alkaline Phosphatase 67 U/L Aspartate Amino Transf (AST/SGOT) 14 U/L Alanine Aminotransferase (ALT/SGPT) 15 U/L Total Bilirubin 2.5 MG/DL Sodium Level 140 MEQ/L Potassium Level 4.8 MEQ/L Chloride Level 108 MEQ/L Carbon Dioxide Level 25.5 MEQ/L Anion Gap 7 MEQ/L Estimat Glomerular Filtration Rate 39 ML/MIN Salicylates Level LESS THAN 1.7 MG/DL Acetaminophen Level LESS THAN 2.0 MCG/ML Ethyl Alcohol Level LESS THAN 3 MG/DL [facility] Medical Decision Making Medical Screen Exam Complete: Yes Emergency Medical Condition: Yes Medical Record Reviewed: Yes Differential Diagnosis Intentional overdose, medication side effect, hypotension Narrative Course I have reviewed the patient's electronic medical record. Patient arrives critically ill profound hypotension after clonidine overdose 2 IVs placed and 2 L normal saline IV bolus given Will reassess pressure after that Blood and urine studies sent Poison control be called I reviewed her EKG which shows sinus bradycardia at 43 Extended cardiac monitoring shows sinus bradycardia in the 40s and 50s Patient was initially very hypotensive. After 2 L came up to 100 systolic I gave her 2 additional liters of IV normal saline for a total of 4 L infused and her blood pressure came up to 120s systolic Heart rate is come up to 60s Mental status is Back to normal over several hours of observation here. She's now been her total of 9 hours and has normal mental status and normal vital signs She is completed psychiatric evaluation I reviewed her lab studies which are reasonably normal This point the patient is no longer critically ill She is medically cleared for psychiatric admission. Critical Care Narrative Aggregate critical care time was 80 minutes. Time to perform other separately billable procedures was not included in the critical care time. My time did not include minutes spent treating any other patients simultaneously or on activities that did not directly contribute to the patient's treatment. The services I provided to this patient were to treat and/or prevent clinically significant deterioration that could result in: Cardiac arrhythmia, cardiopulmonary arrest, shock I provided critical care services requiring my management, as noted below: Chart data review, documentation time, medication orders and management, vital sign assessments/reviewing monitor data, ordering and reviewing lab tests, ordering and interpreting/reviewing x-rays and diagnostic studies, care of the patient and discussion of the patient with the admitting physicians. Diagnosis Primary Impression: Depression with suicidal ideation Additional Impression: Clonidine overdose Qualified Codes: T46.5X2A - Poisoning by other antihypertensive drugs, intentional self-harm, initial encounter Antoni Tavera MD Feb 27, 2018 19:11
[2018-02-27 21:52] LABS: AST (GOT) 14 U/L (15-37); BICARBONATE 25.5 MEQ/L (21.0-32.0); BLOOD UREA NITROGEN 14 MG/DL (7-18); CALCIUM 9.5 MG/DL (8.5-10.1); CHLORIDE 108 MEQ/L (98-107); CREATININE 1.47 MG/DL (0.50-1.00); GLOMERULAR FILTRATION RATE 39 ML/MIN (>89); GLUCOSE,RANDOM 97 MG/DL (74-106); SODIUM (NA) 140 MEQ/L (136-145)
[2018-02-27 21:55] LABS: ALKALINE PHOSPHATASE 67 U/L (45-117); ALT (GPT) 15 U/L (10-53); TOTAL BILIRUBIN ADULT 2.5 MG/DL (0.2-1.0); TOTAL PROTEIN 7.4 GM/DL (6.4-8.2)
[2018-02-27 22:01] LABS: ACETAMINOPHEN LESS THAN 2.0 MCG/ML (10.0-30.0)
[2018-02-27 22:03] LABS: AMORPHOUS SEDIMENT, URINE RARE; BACTERIA, URINE OCC /hpf; BILIRUBIN, URINE NEG (NEG); BLOOD, URINE SMALL (NEG); GLUCOSE,URINE NEG (NEG); HYALINE CAST, URINE 10 /lpf (RARE); KETONE, URINE NEG (NEG); MUCUS URINE FEW /lpf (OCC); NITRITE,URINE NEG (NEG); PH, URINE 5.5 (5.0-8.5); SQUAMOUS EPITHELIAL CELL URINE 1 /hpf (0-5); URINE COLOR YELLOW (YELLW/STRAW); URINE LEUKOCYTE ESTERASE TRACE (NEG)
[2018-02-28 02:14] VITALS: BP 115/69; PULSE 44; RESP 16; O2SAT 99
[2018-02-28 06:00] VITALS: BP 120/74; PULSE 52; RESP 20; O2SAT 95
[2018-02-28 08:36] VITALS: BP 115/67; PULSE 53; RESP 22; TEMP 98.6; O2SAT 98
[2018-02-28 12:27] VITALS: BP 112/68; PULSE 52; RESP 16; TEMP 97.8; O2SAT 95
[2018-02-28 14:10] VITALS: BP 113/66; PULSE 55; RESP 18
[2018-02-28] MEDS ORDERED: LORazepam 2 MG/ML VIAL IM PRN ×2 (14:30)
[2018-02-28] MEDS ORDERED: ACETAMINOPHEN 325 MG TAB PO PRN (14:30)
[2018-02-28] MEDS ORDERED: MAGNESIUM HYDROXIDE SUSP 30 ML CUP PO PRN (14:30)
[2018-02-28] MEDS ORDERED: ALUMINUM/MAGNESIUM/SIMETH 30 ML CUP PO PRN (14:30)
[2018-02-28] MEDS ORDERED: LORazepam 0.5 MG TAB PO PRN (14:30)
--- NOTE | 2018-02-28 14:38 | HHI.HP ---
Provisional Diagnosis Admission Date [place] I. Adjustment disorder with depressed mood versus MDD, [place] II. Unspecified personality disorder [place] III. No significant medical history Certification of Person's Competence To Provide Express and Informed Consent I have personally examined Fatoumata Ortega , a person being served at [facility] on, Feb 28, 2018 14:30. Express and informed consent means consent voluntarily given in writing, by a competent person, after sufficient explanation and disclosure of the subject matter involved to enable the person to make a knowing and willful decision without any element of force, fraud, deceit, duress, or other form of constraint or coercion. This person is 18 years of age or older, is not now known to be incompetent to consent to treatment with a guardian advocate, and does not have a health care surrogate or proxy currently making medical treatment decisions. I have found this person to be one of the following: [] Competent to provide express and informed consent, as defined above, for voluntary admission to this facility and is competent to provide express and informed consent for treatment. He/she has the consistent capacity to make well reasoned, willful, and knowing decisions concerning his or her medical or mental health treatment. The person fully and consistently understands the purpose of the admission for examination/placement and is fully capable of personally exercising all rights assured [place] Incompetent to provide express and informed consent to voluntary admission, and this is incompetent to provide express and informed consent to treatment. The person must be transferred to involuntary status and a petition for a guardian advocate filed with the Circuit Court. [x] Refusing to provide express and informed consent to voluntary admission but is competent to provide express and informed consent for treatment. The person must be discharged or transferred to involuntary status. Form shall be completed within 24 hours of a person's arrival at the receiving facility and filed in the clinical record of each person: 1. Admitted on a voluntary basis 2. Permitted to provide express and informed consent to his/her own treatment 3. Allowed to transfer from involuntary to voluntary status 4. Prior to permitting a person to consent to his or her own treatment after having been previously found incompetent to consent to treatment. History of Present Illness Capacity: Has Capacity HPI The patient is a 42-year-old woman, domiciled with her in [facility] , employed, without no significant psychiatric history, no previous psychiatric hospitalizations, previous suicide attempts by overdosing, reported history of poor impulse control, short temper, no significant medical history, who was brought to the ER on the [place] act after an intentional overdose of clonidine at noon. She says that she took 90 tablets of 0.1 mg strength. She arrives critically ill with a blood pressure of 74 systolic and is feeling drowsy and lethargic. She denies alcohol or illicit drug use. Symptoms are severe. No alleviating factors. No exacerbating factors. Duration is according to the patient 31 hours. On psychiatric evaluation today the patient is irritable, kind of oppositional, minimizing recent suicidal attempt. The patient states that she had an argument with her and then she thought that she had no recent to continue to be here and she overdosed. Patient reports that she has been depressed for the last month, she has been having frequent argument with her , frequent mood swings, increased sensitivity to rejection, frustration abandonment, she has been having also suicidal thoughts without specific plan. At this moment the patient continues to have suicidal ideation, no specific plan , she denies homicidal ideation, she denies visual and auditory hallucinations. The patient is logical, she is coherent she is relevant. Oriented 3. She denies drug and alcohol use. Collateral information from her , Princess Ortega, who says that after an argument yesterday the patient surprisingly overdose seriously. She says that the patient has been threatening of things in the last day with committed suicide. She is seriously concerned about patient's safety and potential symptomatology of depression. Review of Systems Constitutional: DENIES: Diaphoretic episodes, Fatigue, Fever, Weight gain, Weight loss, Chills, Dizziness, Change in appetite, Night Sweats Endocrine: DENIES: Abnorml menstrual pattern, Heat/cold intolerance, Polydipsia , Polyuria, Polyphagia Eyes: DENIES: Blurred vision, Diplopia, Eye inflammation, Eye pain, Vision loss , Photosensitivity, Double Vision Ears, nose, mouth, throat: DENIES: Tinnitus, Hearing loss, Vertigo, Nasal discharge, Oral lesions, Throat pain, Hoarseness, Ear Pain, Running Nose, Epistaxis, Sinus Pain, Toothache, Odynophagia Respiratory: DENIES: Apneas, Cough, Snoring, Wheezing, Hemoptysis, Sputum production, Shortness of breath Cardiovascular: DENIES: Chest pain, Palpitations, Syncope, Dyspnea on Exertion , PND, Lower Extremity Edema, Orthopnea, Claudication Gastrointestinal: DENIES: Abdominal pain, Black stools, Bloody stools, Constipation, Diarrhea, Nausea, Vomiting, Difficulty Swallowing, Anorexia Genitourinary: DENIES: Abnormal vaginal bleeding, Dysmenorrhea, Dyspareunia, Sexual dysfunction, Urinary frequency, Urinary incontinence, Urgency, Hematuria , Dysuria, Nocturia, Vaginal discharge Musculoskeletal: DENIES: Joint pain, Muscle aches, Stiffness, Joint Swelling, Back pain, Neck pain Integumentary: DENIES: Abnormal pigmentation, Pruritus, Rash, Nail changes, Breast masses, Breast skin changes, Nipple discharge Hematologic/lymphatic: DENIES: Bruising, Lymphadenopathy Immunologic/allergic: DENIES: Eczema, Urticaria Neurologic: DENIES: Abnormal gait, Headache, Localized weakness, Paresthesias, Seizures, Speech Problems, Tremor, Poor Balance Psychiatric: COMPLAINS OF: Depression, Suicidal Ideation, DENIES: Anxiety, Confusion, Mood changes, Hallucinations, Agitation, Homicidal Ideation, Delusions Past Psych History Violence risk - self (6 mos) Increased Substance Abuse History Drugs/Alcohol past 12 months Denies alcohol or illegal drug Past Family Social History Coded Allergies: No Known Allergies (Verified Allergy, Unknown, 02/27/18) Active Scripts Pantoprazole (Protonix) 40 Mg Tab, 40 MG PO DAILY for Reflux, #30 TAB 0 Refills Prov:Willie Cassidy DO 12/17/17 Prednisone (Prednisone) 20 Mg Tab, 20 MG PO DAILY for Inflammation, #7 TAB 0 Refills Prov:Willie Cassidy DO 12/17/17 Hydroxyzine HCl (Hydroxyzine HCl) 25 Mg Tab, 25 MG PO Q6H Y for ITCHING, #30 TAB Prov:Willie Cassidy DO 12/17/17 Reported Medications Citalopram (Citalopram) 40 Mg Tab, 40 MG PO DAILY for Control Depression, #30 TAB 0 Refills 12/16/17 Current Medications Medications (Trade) Dose Ordered Sig/Teresa Route Start Time Stop Time Status Last Admin (Ativan) 1 mg Q6H PRN PO 02/28/18 14:30 UNV (Ativan Inj) 1 mg Q6H PRN IM 02/28/18 14:30 UNV (Ativan) 0.5 mg Q12H PRN PO 02/28/18 14:30 UNV (Ativan Inj) 0.5 mg Q12H PRN IM 02/28/18 14:30 UNV (Tylenol) 650 mg Q4H PRN PO 02/28/18 14:30 UNV (Milk Of Magnesia Liq) 30 ml DAILY PRN PO 02/28/18 14:30 UNV (Mag-Al Plus Susp Liq) 30 ml Q6H PRN PO 02/28/18 14:30 UNV (Habitrol 21 Mg Patch.24 Hr) 1 patch DAILY T-DERMAL 02/28/18 14:30 UNV Social History Patient was born and raised in [place], she lives in [facility] with her , unemployed, highest level of education is GED Physical Exam Vital Signs Vital Signs Date Time Temp Pulse Resp B/P (MAP) Pulse Ox O2 Delivery O2 Flow Rate FiO2 02/28/18 12:27 97.8 52 16 112/68 (83) 95 Room Air 02/28/18 08:36 2.00 Lab Results Test 02/27/18 16:52 White Blood Count 7.4 TH/MM3 Red Blood Count 4.54 MIL/MM3 Hemoglobin 15.5 GM/DL Hematocrit 44.7 % Mean Corpuscular Volume 98.5 FL Mean Corpuscular Hemoglobin 34.1 PG Mean Corpuscular Hemoglobin Concent 34.6 % Red Cell Distribution Width 13.3 % Platelet Count 275 TH/MM3 Mean Platelet Volume 7.4 FL Neutrophils (%) (Auto) 63.9 % Lymphocytes (%) (Auto) 23.5 % Monocytes (%) (Auto) 8.5 % Eosinophils (%) (Auto) 3.1 % Basophils (%) (Auto) 1.0 % Neutrophils # (Auto) 4.7 TH/MM3 Lymphocytes # (Auto) 1.7 TH/MM3 Monocytes # (Auto) 0.6 TH/MM3 Eosinophils # (Auto) 0.2 TH/MM3 Basophils # (Auto) 0.1 TH/MM3 CBC Comment DIFF FINAL Differential Comment Blood Urea Nitrogen 14 MG/DL Creatinine 1.47 MG/DL Random Glucose 97 MG/DL Total Protein 7.4 GM/DL Albumin 4.0 GM/DL Calcium Level 9.5 MG/DL Alkaline Phosphatase 67 U/L Aspartate Amino Transf (AST/SGOT) 14 U/L Alanine Aminotransferase (ALT/SGPT) 15 U/L Total Bilirubin 2.5 MG/DL Sodium Level 140 MEQ/L Potassium Level 4.8 MEQ/L Chloride Level 108 MEQ/L Carbon Dioxide Level 25.5 MEQ/L Anion Gap 7 MEQ/L Estimat Glomerular Filtration Rate 39 ML/MIN Salicylates Level LESS THAN 1.7 MG/DL Acetaminophen Level LESS THAN 2.0 MCG/ML Ethyl Alcohol Level LESS THAN 3 MG/DL Date/Time Source Procedure Growth Status 02/27/18 00:00 Urine Random Urine Urine Culture - Preliminary NO GROWTH IN 24 HOURS. Resulted Mental Status Examination Appearance: Appropriate Consciousness: Alert Orientation: x4 Motor Activity: Normal gait Speech: Unremarkable Language: Adequate Fund of Knowledge: Adequate Attention and Concentration: Adequate Memory: Unremarkable Mood: Angry, Sad Affect: Irritable Thought Process & Associations: Intact Thought Content: Appropriate Hallucination Type: None Delusion Type: None Suicidal Ideation: Yes Suicidal Plan: Yes Suicidal Intention: No Homicidal Ideation: No Homicidal Plan: No Homicidal Intention: No Insight: Poor Judgment: Poor Assessment & Plan Problem List: (1) Depression with suicidal ideation ICD Codes: F32.9 - Major depressive disorder, single episode, unspecified; R45.851 - Suicidal ideations Status: Acute Assessment & Plan: On psychiatric evaluation the patient is irritable, oppositional, she reports being depressed. Yesterday after an argument with her the patient overdosed with 70-90 pills of clonidine with suicidal intentions. At this moment the patient continues to express suicidal ideation, no specific plan. Patient has an increased risk of danger to herself. She needs to be admitted in psychiatry for stabilization and safety. We will start trazodone 100 mg at bedtime for depression and insomnia. Transfer patient to 26 on the unit. Consult psychiatry for second opinion. Assessment & Plan Estimated LOS: Walker Rodas MD Feb 28, 2018 14:38
[2018-02-28] MEDS: NICOTINE 21 MG/24 HR PATCH T-DERMAL SCH (15:13)
[2018-02-28 16:46] VITALS: BP 108/63; PULSE 58; RESP 18; TEMP 98.2
--- NOTE | 2018-02-28 20:44 | EKG ---
Date Performed: 02/27/2018 Time Performed: 19:14:41 PTAGE: 42 years EKG: SINUS BRADYCARDIA PROLONGED QT INTERVAL BOTH SINUS BRADYCARDIA AND PROLONGED QT INTERVAL AR E BOTH NEW SINCE PRIOR TRACING. ABNORMAL ECG PREVIOUS TRACING 12/16/17 @ 0830 DOCTOR: Laith Kellogg Interpretating Date/Time 02/28/2018 20:42:19
[2018-02-28] MEDS: traZODone HCL 100 MG TAB PO SCH (21:30)
[2018-03-01 05:49] VITALS: BP 112/67; PULSE 61; RESP 16; TEMP 97.7
[2018-03-01 07:45] LABS: BICARBONATE 28.7 MEQ/L (21.0-32.0); BLOOD UREA NITROGEN 13 MG/DL (7-18); CALCIUM 8.3 MG/DL (8.5-10.1); CHLORIDE 109 MEQ/L (98-107); CHOLESTEROL 142 MG/DL (120-200); CHOLESTEROL/ HDL RATIO 2.69 RATIO; CREATININE 0.78 MG/DL (0.50-1.00); GLOMERULAR FILTRATION RATE 81 ML/MIN (>89); GLUCOSE,RANDOM 77 MG/DL (74-106); HDL CHOLESTEROL 52.7 MG/DL (40.0-60.0); LDL CHOLESTEROL 69 MG/DL (0-99); SODIUM (NA) 143 MEQ/L (136-145); TRIGLYCERIDES 102 MG/DL (42-150)
[2018-03-01] MEDS: NICOTINE 21 MG/24 HR PATCH T-DERMAL SCH (09:00)
--- NOTE | 2018-03-01 12:48 | HHI.PYPN ---
Subjective Remarks This is a request for second opinion. Patient was seen and case was discussed with nursing. Patient says her attempt was an impulsive act. Her protective factors include her son. She says her mood has improved and she no longer has suicidal homicidal ideation intent or plan. She is behaving well on the unit. Mental Status Examination Appearance: Appropriate Consciousness: Alert Orientation: x4 Motor Activity: Normal gait Speech: Unremarkable Language: Adequate Fund of Knowledge: Adequate Attention and Concentration: Adequate Memory: Unremarkable Mood: Angry, Sad Affect: Irritable Thought Process & Associations: Intact Thought Content: Appropriate Hallucination Type: None Delusion Type: None Suicidal Ideation: No Suicidal Plan: No Suicidal Intention: No Homicidal Ideation: No Homicidal Plan: No Homicidal Intention: No Insight: Poor Judgment: Poor Results Labs Test 03/01/18 06:27 Blood Urea Nitrogen 13 MG/DL Creatinine 0.78 MG/DL Random Glucose 77 MG/DL Calcium Level 8.3 MG/DL Sodium Level 143 MEQ/L Potassium Level 3.9 MEQ/L Chloride Level 109 MEQ/L Carbon Dioxide Level 28.7 MEQ/L Anion Gap 5 MEQ/L Estimat Glomerular Filtration Rate 81 ML/MIN Triglycerides Level 102 MG/DL Cholesterol Level 142 MG/DL LDL Cholesterol 69 MG/DL HDL Cholesterol 52.7 MG/DL Cholesterol/HDL Ratio 2.69 RATIO Date/Time Source Procedure Growth Status 02/27/18 00:00 Urine Random Urine Urine Culture - Final NO GROWTH IN 48 HOURS. Complete Vitals/IOs Vital Signs Date Time Temp Pulse Resp B/P (MAP) Pulse Ox O2 Delivery O2 Flow Rate FiO2 03/01/18 05:49 97.7 61 16 112/67 (82) 02/28/18 12:27 95 Room Air 02/28/18 08:36 2.00 Assessment & Plan Problem List: (1) Depression with suicidal ideation ICD Codes: F32.9 - Major depressive disorder, single episode, unspecified; R45.851 - Suicidal ideations Status: Acute Assessment & Plan I agree with a first opinion to continue petition. Criteria include suicide attempt Justification for Cont. Inpt. Patient would decompensate in a less restrictive setting Garry Domingo DO Mar 01, 2018 12:48
[2018-03-01] MEDS: LORazepam 1 MG TAB PO PRN ×2 (15:10→20:35)
[2018-03-01 19:28] VITALS: BP 110/67; PULSE 60; RESP 16; TEMP 98; O2SAT 97
[2018-03-01] MEDS: traZODone HCL 100 MG TAB PO SCH (20:35)
[2018-03-02 05:17] VITALS: BP 110/62; PULSE 59; RESP 16; TEMP 97.7; O2SAT 96
[2018-03-02] MEDS: NICOTINE 21 MG/24 HR PATCH T-DERMAL SCH (10:35)
--- NOTE | 2018-03-02 12:41 | HHI.PYPN ---
Subjective Remarks Patient was seen and case discussed with nursing. Patient continues to improve. Had a productive visit with her . 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 She does minimize her suicidal thoughts before admission. She says she misses her son and is looking forward to going to her daughter's graduation. He is social on the unit. She denies suicidal or homicidal ideation intent or plan Mental Status Examination Appearance: Appropriate Consciousness: Alert Orientation: x4 Motor Activity: Normal gait Speech: Unremarkable Language: Adequate Fund of Knowledge: Adequate Attention and Concentration: Adequate Memory: Unremarkable Mood: Angry, Sad Affect: Irritable Thought Process & Associations: Intact Thought Content: Appropriate Hallucination Type: None Delusion Type: None Suicidal Ideation: No Suicidal Plan: No Suicidal Intention: No Homicidal Ideation: No Homicidal Plan: No Homicidal Intention: No Insight: Poor Judgment: Poor Results Labs Date/Time Source Procedure Growth Status 02/27/18 00:00 Urine Random Urine Urine Culture - Final NO GROWTH IN 48 HOURS. Complete Vitals/IOs Vital Signs Date Time Temp Pulse Resp B/P (MAP) Pulse Ox O2 Delivery O2 Flow Rate FiO2 03/02/18 05:17 97.7 59 16 110/62 (78) 96 02/28/18 12:27 Room Air 02/28/18 08:36 2.00 Intake and Output 03/02/18 03/02/18 03/03/18 08:00 16:00 00:00 Intake Total 240 ml Balance 240 ml Assessment & Plan Problem List: (1) Depression with suicidal ideation ICD Codes: F32.9 - Major depressive disorder, single episode, unspecified; R45.851 - Suicidal ideations Status: Acute Assessment & Plan Continue current treatment plan Justification for Cont. Inpt. Patient would decompensate in a less restrictive setting Garry Domingo DO Mar 02, 2018 12:41
[2018-03-02 13:45] LABS: HEMOGLOBIN A1C 4.9 % (4.3-6.0)
[2018-03-02 17:46] VITALS: BP 130/70; PULSE 80; RESP 18; TEMP 97.2; O2SAT 97
[2018-03-02] MEDS: traZODone HCL 100 MG TAB PO SCH (21:17)
[2018-03-02] MEDS: LORazepam 1 MG TAB PO PRN (22:11)
[2018-03-03 06:02] VITALS: BP 96/57; PULSE 61; RESP 16; TEMP 98.1; O2SAT 94
[2018-03-03] MEDS: NICOTINE 21 MG/24 HR PATCH T-DERMAL SCH (08:59)
[2018-03-03] MEDS: CITALOPRAM HYDROBROMIDE 20 MG TAB PO SCH (17:39)
[2018-03-03] MEDS: LORazepam 1 MG TAB PO PRN (17:41)
[2018-03-03 18:00] VITALS: BP 141/63; PULSE 70; RESP 17; TEMP 98.3; O2SAT 98
--- NOTE | 2018-03-03 18:11 | HHI.PYPN ---
Subjective Remarks Patient seen for follow, chart reviewed. Discussion nursing staff reported the patient Darren behavioral disturbances, sleeping, compliant with medications. Patient was found ambulating on the unit noted to be endorsing good mood. Patient states that prior to her admission she had attempted to end her life but later endorses that her overdose was an attempt to get attention from her . Patient states that she has a lot to live for referring to her daughter and her son who has autism. She states that recently she has been going through difficulties from her life and that the day of the overdose she had taken her daughter sleeping pills, 60 tablets. Patient is again endorses that her recent action was to get the attention of her and not having true intention of ending her life. Patient was reminded that a recent overdose could had succeeded in her life which she acknowledges. Patient states the medication has been helping and states that this is her second psychiatric hospitalization, the first being after she had run out of the hospital after giving to 1 of her children. Patient states that she has not had any prior suicide attempt in the past. Patient denies feeling depressed and states that she had been previously been taking Celexa for the past couple of months for depression. Patient noted to be tearful when plan to have patient to continue monitor his admission was discussed this patient has been requesting to be discharged but aware that she is here on a voluntary admission. Review of Systems Except as stated in HPI: all other systems reviewed are Neg Mental Status Examination Appearance: Appropriate Consciousness: Alert Orientation: x4 Motor Activity: Normal gait Speech: Unremarkable Language: Adequate Fund of Knowledge: Adequate Attention and Concentration: Adequate Memory: Unremarkable Mood: Appropriate, Other (Tearful when patient was told patient will require further hospitalization) Affect: Appropriate Thought Process & Associations: Intact, Linear Thought Content: Appropriate Hallucination Type: None Delusion Type: None Suicidal Ideation: No Suicidal Plan: No Suicidal Intention: No Homicidal Ideation: No Homicidal Plan: No Homicidal Intention: No Insight: Poor Judgment: Poor Results Labs Labs reviewed Date/Time Source Procedure Growth Status 02/27/18 00:00 Urine Random Urine Urine Culture - Final NO GROWTH IN 48 HOURS. Complete Vitals/IOs Vital Signs Date Time Temp Pulse Resp B/P (MAP) Pulse Ox O2 Delivery O2 Flow Rate FiO2 03/03/18 06:02 98.1 61 16 96/57 (70) 94 02/28/18 12:27 Room Air 4/13/18 08:36 2.00 Assessment & Plan Problem List: (1) Depression with suicidal ideation ICD Codes: F32.9 - Major depressive disorder, single episode, unspecified; R45.851 - Suicidal ideations Status: Acute Assessment & Plan Patient this time denying feeling depressed and minimizing recent suicide attempt stated that her recent actions was an attempt to get her 's attention although patient had taken 60 tablets of clonidine in attempt to end her life. We will restart patient on citalopram 20 mg as patient's last EKG on admission had a prolonged QTC interval. We will order repeat EKG to monitor for QTc prolongation. We will continue trazodone 100 mg p.o. at bedtime for sleep disturbance. Collateral formation pending from patient's . Patient since admission has had not had any behavioral dyscontrol, has a compliant with medications. Once collateral admissions obtained and discharge plan has been formulated patient like to be discharged home soon. Discharge planning in progress. Justification for Cont. Inpt. At risk for further decompensation if at lower level of care Chato Aguero MD Mar 03, 2018 18:11
[2018-03-03] MEDS: traZODone HCL 100 MG TAB PO SCH (20:19)
[2018-03-04 05:51] VITALS: BP 98/52; PULSE 58; RESP 17; TEMP 98.1; O2SAT 94
[2018-03-04] MEDS: CITALOPRAM HYDROBROMIDE 20 MG TAB PO SCH (08:09)
[2018-03-04] MEDS: NICOTINE 21 MG/24 HR PATCH T-DERMAL SCH (08:11)
[2018-03-04] MEDS ORDERED: CELE20TA PO (08:22)
[2018-03-04] MEDS ORDERED: TRAZ100T10 PO (08:22)
--- NOTE | 2018-03-04 13:26 | HHI.DS ---
Psychiatry Discharge Summary Inpatient Psychiatric care?: Yes Advance Directive: No Reason Not Provided: Did not have one Mental Health AdvanceDirective: No Health Care Proxy: No Admission Admission Date Feb 28, 2018 at 14:30 Admission Diagnosis: (1) Depression with suicidal ideation ICD Code: F32.9 - Major depressive disorder, single episode, unspecified; R45.851 - Suicidal ideations Brief History The patient is a 42-year-old woman, domiciled with her in [facility] , employed, without no significant psychiatric history, no previous psychiatric hospitalizations, previous suicide attempts by overdosing, reported history of poor impulse control, short temper, no significant medical history, who was brought to the ER on the [facility] act after an intentional overdose of clonidine at noon. She says that she took 90 tablets of 0.1 mg strength. She arrives critically ill with a blood pressure of 74 systolic and is feeling drowsy and lethargic. She denies alcohol or illicit drug use. Symptoms are severe. No alleviating factors. No exacerbating factors. Duration is according to the patient 31 hours. On psychiatric evaluation today the patient is irritable, kind of oppositional, minimizing recent suicidal attempt. The patient states that she had an argument with her and then she thought that she had no recent to continue to be here and she overdosed. Patient reports that she has been depressed for the last month, she has been having frequent argument with her , frequent mood swings, increased sensitivity to rejection, frustration abandonment, she has been having also suicidal thoughts without specific plan. At this moment the patient continues to have suicidal ideation, no specific plan , she denies homicidal ideation, she denies visual and auditory hallucinations. The patient is logical, she is coherent she is relevant. Oriented 3. She denies drug and alcohol use. Collateral information from her , Princess Ortega, who says that after an argument yesterday the patient surprisingly overdose seriously. She says that the patient has been threatening of things in the last day with committed suicide. She is seriously concerned about patient's safety and potential symptomatology of depression. Tobacco Use In Past 30 Days: 5 or More Cigarettes/Day Alcohol Use: Never Hospital Course Patient is a 42 y/o woman, , employed, domiciled with and two children, with past psychiatric history significant for depression, no previous psychiatric hospitalizations, no previous suicide attempts, history of self-injurious behavior (hitting herself in the legs), recently on citalopram, no significant past medical history who was brought in under [place] Act due to recent overdose with clonidine which patient was admitted to the inpatient psychiatry for further evaluation and management. Patient was started on trazodone and increased to 100mg PO HS and continued on citalopram 20mg PO daily for depression. Patient was admitted to a locked, inpatient psychiatric unit. Appropriate precautions were in place throughout patient's hospital stay. Patient was seen and examined on the unit by psychiatry and no noted behavioral disturbances. There was no evidence of any suicidality or homicidality on the inpatient unit. Patient's behavior had been stable during observation and events that led to his admission likely due to poor impulse control and continued to state that her recent overdose was to get her wifes attention without intention to end her life. Collateral information was difficult to obtain during her admission as multiple attempts to contact patient s have been unsuccessful. The patient is agreeable to continue with outpatient clinic for mental health services and engage in therapy. She feels ready to leave the hospital, denies any suicidal or homicidal ideation, intent or plan on direct questioning and contracts for safety. I can elicit no mood symptoms. He denies any audiovisual hallucinations. No delusional material verbalized today. No physical complaints. Suicide and violence risk assessment on day of discharge both suggest lower imminent risk, and the patient 's level of function is adequate for planned level of outpatient care. Patient has maximized benefit from this inpatient psychiatric hospital stay and will be discharged to mother who will take him back to his residence with follow-up as arranged by counselor. Patient advised to call 911 or go nearest ED in case of emergency. Patient agreed with plan. Results Blood Pressure 98 / 52 Vital Signs Date Time Temp Pulse Resp B/P (MAP) Pulse Ox O2 Delivery O2 Flow Rate FiO2 03/04/18 05:51 98.1 58 17 98/52 (67) 94 02/28/18 12:27 Room Air 02/28/18 08:36 2.00 Laboratory Results Test 03/01/18 06:27 Cholesterol Level 142 MG/DL (120-200) HDL Cholesterol 52.7 MG/DL (40.0-60.0) Hemoglobin A1c 4.9 % (4.3-6.0) LDL Cholesterol 69 MG/DL (0-99) Triglycerides Level 102 MG/DL (42-150) Summary of Procedures None Pending results at discharge: No Medications # of Antipsychotic meds at D/C: 0 Approp Antipsych med options 1 - Minimum of three failed multiple trials of monotherapy. 2 - Documented plan to taper to monotherapy due to previous use of multiple meds OR cross-taper in progress at D/C. 3 - Documentation of augmentation of Clozapine. 4 - Justification other than those listed in allowable values 1-3, document here : Discharge Discharge Date: Mar 04, 2018 Discharge Diagnosis: (1) Depression with suicidal ideation ICD Code: F32.9 - Major depressive disorder, single episode, unspecified; R45.851 - Suicidal ideations Status: Acute Pt Condition on Discharge: Stable Discharge Disposition: Discharge Home Discharge Instructions Diet Instructions: As Tolerated, No Restrictions, Heart Healthy Diet Discharge Time > 30 minutes Mental Status Examination Appearance: Appropriate Consciousness: Alert Orientation: x4 Motor Activity: Normal gait Speech: Unremarkable Language: Adequate Fund of Knowledge: Adequate Attention and Concentration: Adequate Memory: Unremarkable Mood: Appropriate, Other (Tearful when patient was told patient will require further hospitalization) Affect: Appropriate Thought Process & Associations: Intact, Linear Thought Content: Appropriate Hallucination Type: None Delusion Type: None Suicidal Ideation: No Suicidal Plan: No Suicidal Intention: No Homicidal Ideation: No Homicidal Plan: No Homicidal Intention: No Insight: Poor Judgment: Poor Discharge/Advance Care Plan Health Problems: (1) Depression with suicidal ideation Goals to promote your health * To prevent worsening of your condition and complications * To maintain your health at the optimal level Directions to meet your goals Take your medications as prescribed Follow your dietary instruction Follow activity as directed Keep your appointments as scheduled Take your immunizations and boosters as scheduled If your symptoms worsen call your PCP, if no PCP go to Urgent Care Center or Emergency Room For 10/06 questions related to your inpatient stay or results of tests pending at discharge, please contact Dr. Chato Aguero at Smoking is Dangerous to Your Health. Avoid second hand smoking Chato Aguero MD Mar 04, 2018 13:26
--- NOTE | 2018-03-04 15:37 | EKG ---
Date Performed: 03/03/2018 Time Performed: 21:47:54 PTAGE: 42 years EKG: SINUS BRADYCARDIA BORDERLINE ECG Since the PREVIOUS TRACING , no significant change noted PREVIOUS TRACIN02/27/2018 19.14 DOCTOR: Lanre Maxwell Interpretating Date/Time 03/04/2018 15:25:52
== END 2018-03-04 15:00 | disposition home or self-care (01) | DRG 881 ==
LOC: NEPD 13:52 → NEDA 02-28 14:30 → H260 02-28 15:47
PROVIDERS: ADMIT Student in an Organized Health Care Education/Training Program; ATTEND Student in an Organized Health Care Education/Training Program
DX: F32.9 Major depressive disorder, single episode, unspecified (principal); R45.851 Suicidal ideations; I95.2 Hypotension due to drugs; T46.5X2A Poisoning by other antihypertensive drugs, intentional self-harm, initial encounter; G47.9 Sleep disorder, unspecified
CPT/HCPCS: 80048; 80053; 80061; 80307; 81001; 83036; 84703; 85025; 87086; 93005; 96360; 99292; J7030